=== PATIENT | female | born 1950 | race Caucasian/White ===

== ENCOUNTER 2018-08-18 16:08 | Emergency (ER) | payer MEDICARE, OTHER ==
[2018-08-18] MEDS ORDERED: diazePAM 5 MG/ML MDV IM ONE (16:47)
--- NOTE | 2018-08-18 16:53 | EDM.PDOC ---
ED HPI GENERAL MEDICAL PROBLEM - General Chief Complaint: General Stated Complaint: MUSCLE SPASMS Time Seen by Provider: 08/18/18 16:16 - History of Present Illness INITIAL COMMENTS - FREE TEXT/NARRATIVE: Patient presents the emergency room at [facility] for the evaluation of neck upper and lower back muscle spasms. The patient has not had any injury or trauma. The patient had a mastectomy done in June and since then she's had issues with muscle spasms. The patient has been taking Flexeril and oxycodone without much relief. The patient was seen in the emergency room 6 days ago at [place] for port pain. The patient states that she did go for walk a couple of days ago and states that this may have aggravated her muscle spasm. Otherwise no other concerns. Onset: Unknown/Unsure - Related Data Home Meds: Home Meds Gabapentin [Neurontin] 100 mg PO BEDTIME 7 Days #7 capsule 08/18/18 [Rx] Orphenadrine [Norflex] 100 mg PO BID PRN #20 tab 08/18/18 [Rx] ED ROS GENERAL - Review of Systems Review Of Systems: See Below Constitutional: Denies: Fever, Chills Respiratory: Denies: Shortness of Breath, Cough Cardiovascular: Denies: Chest Pain, Palpitations Musculoskeletal: Reports: Muscle Pain, Muscle Stiffness, Other (muscle spasms, see HPI) Skin: Reports: No Symptoms Neurological: Reports: No Symptoms ED EXAM, GENERAL - Physical Exam Exam: See Below Exam Limited By: No Limitations General Appearance: Alert, Moderate Distress Respiratory/Chest: No Respiratory Distress, Lungs Clear, Normal Breath Sounds Cardiovascular: Normal Peripheral Pulses, Regular Rate, Rhythm Peripheral Pulses: 2+: Radial (L), Radial (R) Back Exam: Normal Inspection, Decreased Range of Motion, Muscle Spasm (C-Spine; T-Spine; L-Spine), Paraspinal Tenderness Neurological: Alert, Oriented Skin Exam: Warm, Dry, Intact, Normal Color, No Rash Course - Orders/Labs/Meds Orders: Active Orders 24 hr Category Date Time Status diazePAM [Valium] Med 08/18/18 16:47 Once 5 mg IM STAT ONE Departure - Departure Time of Disposition: 16:51 Disposition: Home, Self-Care 01 Condition: Good Clinical Impression: Muscle spasm of back - Discharge Information *PRESCRIPTION DRUG MONITORING PROGRAM REVIEWED*: Not Applicable *COPY OF PRESCRIPTION DRUG MONITORING REPORT IN PATIENT [place]: Not Applicable Prescriptions: Gabapentin [Neurontin] 100 mg PO BEDTIME 7 Days #7 capsule Orphenadrine [Norflex] 100 mg PO BID PRN #20 tab PRN Reason: Muscle Spasm Instructions: Muscle Cramps and Spasms Referrals: Vincent Littlejohn MD [Primary Care Provider] - Forms: ED Department Discharge Additional Instructions: 1. Stay well hydrated and rest 2. Stop Flexeril 3. Start Norflex twice daily as needed 4. Start night time dose of Gabapentin for pain 5. See. Dr. Littlejohn, this week in clinic to follow up - Problem List Review Problem List Initiated/Reviewed/Updated: Yes - My Orders Last 24 Hours: My Active Orders 08/18/18 16:47 diazePAM [Valium] 5 mg IM STAT ONE - Assessment/Plan Last 24 Hours: My Active Orders 08/18/18 16:47 diazePAM [Valium] 5 mg IM STAT ONE Assessment:: Muscle Spasms of back Plan: Discussed pathophysiology with patient. Will stop Flexeril and Start Norflex and Gabapentin. Continue with Oxy at prescribed. Recommend to patient to see PCP this week for a follow up. Will give IM Valium in ER for immediate relief. All questions answered. SE of all medications discussed at length.
== END 2018-08-18 17:40 | disposition home or self-care (01) ==
LOC: VM.ED 16:08
DX: M62.830 Muscle spasm of back (principal)
CPT/HCPCS: 96372; 99283; J3360

== ENCOUNTER 2019-07-22 06:45 | Day surgery (SDC) | payer MEDICARE, OTHER ==
[2019-07-22] MEDS ORDERED: Lactated Ringers 1,000 ML IV SCH ×2 (07:00→08:17)
[2019-07-22] MEDS ORDERED: fentaNYL 100 MCG/2 ML SDV ONE (07:53)
[2019-07-22] MEDS ORDERED: Propofol 200 MG/20 ML SDV ONE ×2 (07:53→09:11)
--- NOTE | 2019-07-22 12:03 | OR ---
BRIEF HISTORY OF PRESENT ILLNESS: Ms. Evangelista is a 68-year-old female who is here for routine screening colonoscopy. She tells me her last scope was 10 years ago and she did not have any polyps. She denies any change in her bowel habits or any bloody or dark black stools. She has no family history of colon cancer. PROCEDURE: Total flexible colonoscopy. ANESTHESIA: MAC anesthesia. COMPLICATIONS: None. BLOOD LOSS: Minimal. FINDINGS: 1. Transverse colon polyp, 2 mm, cold forceps. 2. Rectal polyp, 5 mm, hot snare. START TIME: 08:49. CECUM TIME: 08:58. STOP TIME: 09:14. DETAILS OF PROCEDURE: After informed consent was obtained, the patient was placed in the left lateral decubitus position on the procedure table. MAC anesthesia was induced by Anesthesia colleagues. After digital rectal exam, the colonoscope was introduced through the anal canal and advanced to the cecum. The sigmoid was a bit difficult to navigate, I suspect due to her previous hysterectomy, but we were able to get through this without too much trouble. The IC valve was photographed, and the colonoscope was then slowly withdrawn. No pathology was identified except for what is mentioned in the finding section. A retroflexed view was performed, and there were no abnormalities. Bowel prep was Cecil class II. PATHOLOGY: Recommended colonoscopy in years. RKM: 07/22/2019 09:19:42 MODL: 07/22/2019 11:57:33 /[id number]
== END 2019-07-22 10:18 | disposition home or self-care (01) ==
LOC: VM.SDS 06:45
PROVIDERS: ATTEND Student in an Organized Health Care Education/Training Program
DX: Z12.11 Encounter for screening for malignant neoplasm of colon (principal); D12.3 Benign neoplasm of transverse colon; D12.8 Benign neoplasm of rectum; E78.2 Mixed hyperlipidemia; I10 Essential (primary) hypertension; G40.909 Epilepsy, unspecified, not intractable, without status epilepticus; M81.0 Age-related osteoporosis without current pathological fracture; C50.512 Malignant neoplasm of lower-outer quadrant of left female breast; E66.9 Obesity, unspecified; Z87.891 Personal history of nicotine dependence; Z88.5 Allergy status to narcotic agent; Z88.8 Allergy status to other drugs, medicaments and biological substances; Z17.0 Estrogen receptor positive status [ER+]; Z68.37 Body mass index [BMI] 37.0-37.9, adult; Z79.899 Other long term (current) drug therapy
CPT/HCPCS: 00812; 45380; 45385; 88305; J2704; J3010; J7120; 45384

== ENCOUNTER 2024-09-10 09:37 | Day surgery (SDC) | payer MEDICARE, OTHER ==
[2024-09-10] MEDS: Lactated Ringers 1,000 ML IV SCH (09:59)
[2024-09-10] MEDS ORDERED: fentaNYL 100 MCG/2 ML SDV ONE (10:44)
[2024-09-10] MEDS ORDERED: Midazolam 1 MG/ML 2 ML SDV ONE (10:44)
[2024-09-10] MEDS ORDERED: Propofol 200 MG/20 ML SDV ONE (10:44)
== END 2024-09-10 12:57 | disposition home or self-care (01) ==
LOC: VM.SDS 09:37
PROVIDERS: ATTEND Family Medicine
DX: Z12.11 Encounter for screening for malignant neoplasm of colon (principal); D12.6 Benign neoplasm of colon, unspecified; K64.9 Unspecified hemorrhoids; K57.30 Diverticulosis of large intestine without perforation or abscess without bleeding; Z86.0100 Personal history of colon polyps, unspecified; I10 Essential (primary) hypertension; E78.00 Pure hypercholesterolemia, unspecified; Z87.891 Personal history of nicotine dependence; Z79.899 Other long term (current) drug therapy; Z88.5 Allergy status to narcotic agent; Z88.8 Allergy status to other drugs, medicaments and biological substances
CPT/HCPCS: 00811; 45380; 99100; J2250; J2704; J3010; J7120; 88305